=== PATIENT | female | born 1975 | race Caucasian/White ===

== ENCOUNTER → 2016-04-22 | Outpatient (CLI) | payer OTHER ==
--- NOTE | 2016-04-22 16:49 | US ---
Pelvic Ultrasound (Transabdominal and Endovaginal) with color flow and spectral Doppler History: Menorrhagia. Findings: The pelvis was first examined through a moderately distended bladder from TRANSABDOMINAL approach. UTERUS: Size: 9.1 x 4 x 4.4 cm in longitudinal, AP, and transverse projections. Orientation: Anteverted and retroflexed. Uterine Masses: Subserosal fundal fibroid measuring 1.9 x 1.3 x 1.9 cm. Endometrium: Not well delineated. ADNEXA: No adnexal masses. The pelvis was then evaluated from ENDOVAGINAL approach after the bladder was emptied to better evalu ate the uterus and adnexa. UTERUS: Orientation: Anteverted and retroflexed. Masses: The fundal fibroid was better visualized from transabdominal approach. No additional fibroids are appreciated within the myometrium. Endometrium: There is a heterogeneous lesion within the endometrial canal that could represent a poly p versus polypoid fibroid or submucosal fibroid that measures 1.3 x 1.1 x 1.3 cm. No additional endom etrial abnormality is seen. ADNEXA: Normal. Small follicles are present bilaterally. Right ovary size: 2.7 x 1.4 x 1.8 cm Left ovary size: 2.4 x 1.2 x 2.3 cm Color flow and spectral Doppler: Normal color flow imaging with normal Doppler waveform bilaterally. Free fluid: None. Other findings: None. Impression: 1. Subserosal fundal fibroid. 2. Heterogeneous lesion within the endometrial canal that could represent endometrial polyp, polypoid fibroid, or submucosal fibroid. If indicated, consider hysterosonography versus hysteroscopy for fur ther characterization. 3. Normal-appearing ovaries.
== END ==
LOC: FIMAGING 09:58
PROVIDERS: ATTEND Family Medicine
DX: N93.9 Abnormal uterine and vaginal bleeding, unspecified (principal); D25.2 Subserosal leiomyoma of uterus; N85.8 Other specified noninflammatory disorders of uterus

== ENCOUNTER → 2016-09-16 | Outpatient (CLI) | payer OTHER | LOC: CIMAGING 07:23 | PROVIDERS: ATTEND Obstetrics & Gynecology | DX: N84.0 Polyp of corpus uteri (principal); D25.2 Subserosal leiomyoma of uterus | CPT/HCPCS: 76856-PO ==

== ENCOUNTER → 2018-03-19 | Outpatient (CLI) | payer OTHER | LOC: FIMAGING 09:33 | PROVIDERS: ATTEND Family Medicine | DX: M25.562 Pain in left knee (principal) ==